=== PATIENT | male | born 1965 | race Caucasian/White ===

== ENCOUNTER 2019-08-07 08:48 | Day surgery (SDC) | payer BC ==
[~2019-08-07] VITALS: Ht 170.2 cm; Wt 92.8 kg
[~2019-08-07 08:48] MED LIST: Keflex500 MG PO; LOSA25 PO; Norco 5-325 Ta1 EACH PO
[2019-08-07] MEDS ORDERED: OLME20 (09:24)
[2019-08-07] MEDS ORDERED: AMLO5 (09:25)
[2019-08-07] MEDS ORDERED: CYCL10 (09:25)
--- NOTE | 2019-08-07 10:54 | NUR ---
08/07/19 1054 Pilar Rich PATIENT REFUSED MULTIPLE OFFERS OF PO FLUIDS.
== END 2019-08-07 10:46 | disposition home or self-care (01) ==
LOC: ORSCSDS 08:48
PROVIDERS: Internal Medicine Gastroenterology
PROC: 0DBM8ZX Excision of Descending Colon, Via Natural or Artificial Opening Endoscopic, Diagnostic (ICD-10-PCS; principal; 2019-08-07 10:15)
PROC: 0DBH8ZX Excision of Cecum, Via Natural or Artificial Opening Endoscopic, Diagnostic (ICD-10-PCS; principal; 2019-08-07 10:15)
DX: Z12.11 Encounter for screening for malignant neoplasm of colon (principal); D12.0 Benign neoplasm of cecum; D12.4 Benign neoplasm of descending colon; Z86.010 Personal history of colon polyps; I10 Essential (primary) hypertension; K64.4 Residual hemorrhoidal skin tags; K57.30 Diverticulosis of large intestine without perforation or abscess without bleeding; B19.10 Unspecified viral hepatitis B without hepatic coma; E66.9 Obesity, unspecified; Z68.32 Body mass index [BMI] 32.0-32.9, adult; Z79.899 Other long term (current) drug therapy
CPT/HCPCS: 88305; J2704; J7120